=== PATIENT | male | born 1990 | race Caucasian/White ===

== ENCOUNTER 2022-07-04 10:43 | Emergency (ER) | payer OTHER ==
[~2022-07-04] VITALS: Ht 190.5 cm; Wt 118.1 kg
[2022-07-04 11:40] VITALS: BP 132/99
[2022-07-04] MEDS ORDERED: IBUPROFEN 800 MG TAB PO ONE (12:15)
[2022-07-04] MEDS ORDERED: IBUP800T27 PO (12:41)
== END 2022-07-04 12:46 | disposition home or self-care (01) ==
LOC: ER 10:43
DX: S63.501A Unspecified sprain of right wrist, initial encounter (principal); V43.52XA Car driver injured in collision with other type car in traffic accident, initial encounter; Y93.89 Activity, other specified; Y92.410 Unspecified street and highway as the place of occurrence of the external cause; Y99.8 Other external cause status
CPT/HCPCS: 73110